=== PATIENT | female | born 1960 | race American Indian/Alaskan Native ===

== ENCOUNTER 2022-07-03 07:58 | Emergency (ER) | payer MEDICARE ==
[2022-07-03 09:40] LABS: BUN/Creatinine Ratio 20; Blood Urea Nitrogen 16 mg/dL (7-17); Calcium 9.8 mg/dL (8.4-10.2); Hemolysis Index 9
[2022-07-03 09:49] LABS: Basophils # (Auto) 0.1 K/mm3 (0.0-0.1); Basophils % (Auto) 0.7 % (0.0-1.8); Eosinophils # (Auto) 0.1 K/mm3 (0.0-0.4); Eosinophils % (Auto) 1.5 % (0.0-4.3); Hematocrit 36.1 % (30.3-42.9); Hemoglobin 11.7 gm/dl (10.1-14.3); Lymphocytes # (Auto) 1.8 K/mm3 (1.2-5.4); Lymphocytes % (Auto) 22.3 % (13.4-35.0); Mean Corpuscular HGB Conc 32 % (30-34); Mean Corpuscular Volume 101 fl (79-97); Monocytes # (Auto) 0.4 K/mm3 (0.0-0.8); Monocytes % (Auto) 4.9 % (0.0-7.3); Platelet Count 382 K/mm3 (140-440); Red Blood Count 3.58 M/mm3 (3.65-5.03); Red Cell Distribution Width 13.7 % (13.2-15.2)
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
[2022-07-03] MEDS: risperiDONE 0.25 MG TAB PO SCH (22:53)
[2022-07-03] MEDS: buPROPion XL 150 MG TAB PO SCH (22:55)
[2022-07-03] MEDS: TOPIRAMATE TAB 200 MG TAB PO SCH (22:55)
--- NOTE | 2022-07-03 23:36 | Emergency Department Report ---
HPI - General Chief Complaint: Medical Clearance PUI?: No - HPI HPI: 61yo F w/HTN, CHF, presents for evaluation of SI. Please note that at the time of onset of this provider's shift time, the pt had been registered and evaluated by psychiatry ~15 hours ago. The pt states she has nowhere to live and reports she has been feeling suicidal. She told me that she will drive off of bridge. She denies any auditory visual hallucinations but does state that "they are trying to get me." She will not clarify to whom she is referring. Patient states she has no pain at this time. She denies any tobacco alcohol or illicit drug usage. Pain 0 out of 10 ED Past Medical Hx - Past Medical History Previous Medical History?: Yes Hx Hypertension: Yes Hx Congestive Heart Failure: Yes - Surgical History Additional Surgical History: HIP REPLACEMENT - Social History Substance Use Type: None ED Review of Systems ROS: Stated complaint: MEDICAL CLEARANCE Other details as noted in HPI Comment: All other systems reviewed and negative Physical Exam - Physical Exam Vital Signs: Vital Signs 07/03/22 08:09 Temperature 98.3 F Pulse Rate 94 H Respiratory 18 Rate Blood Pressure 169/75 O2 Sat by Pulse 98 Oximetry General: Gen: pt is well appearing, no acute distress HEENT: Normocephalic atraumatic pupils equally round and reactive to light extraocular muscles intact sclera anicteric Neck: Full range of motion, no midline spinal tenderness palpation, no JVD, no carotid bruits, no nuchal rigidity CVS: S1-S2 regular rate and rhythm with no gallops rubs or murmurs, chest wall nontender Pulmonary: Clear to auscultation bilaterally, no wheezes rales or rhonchi Abdomen: Soft nondistended nontender no guarding or rebound tenderness, no palpable deformities or step-offs, normal active bowel sounds, no hepatosplenomegaly, no pulsatile masses : Deferred Extremities: No cyanosis no clubbing no edema, intact distal peripheral pulses, Integumentary: Skin normal, no petechia no purpura no abscess no lacerations no evidence of trauma no evidence of infection Neuro: Patient is awake alert and oriented to person place time situation, mentating well, cranial nerves II through XII intact, no focal neurodeficits, sensation grossly tact Psych: Calm cooperative, mood affect normal ED Course Vital Signs 07/03/22 08:09 Temperature 98.3 F Pulse Rate 94 H Respiratory 18 Rate Blood Pressure 169/75 O2 Sat by Pulse 98 Oximetry - Reevaluation(s) Reevaluation #1: 07/04/22 01:49 pt asleep, comfortable appearing, nad; ED Medical Decision Making - Lab Data Result diagrams: 07/03/22 08:54 07/03/22 08:54 - Medical Decision Making 61yo F, seen by psychiatry with documented recommendation for psychiatry acute inpatient hospitalization,. Patient had 1013 placed by previous provider and this has been placed into the patient's chart. Review of serum labs reveal no acute findings. Pt has been medically cleared based off of the resulted serum labs. Urine drug screen and COVID test remain pending at the time of this dictation. Patient will continue to remain as held as a 1013, and will await formal placement by psychiatry for acute inpatient psychiatric hospitalization in the setting of delusional disorder and suicidal ideation Critical Care Time: No Critical care attestation.: If time is entered above; I have spent that time in minutes in the direct care of this critically ill patient, excluding procedure time. ED Disposition Clinical Impression: Delusional disorder, Suicidal ideation Disposition: 30 STILL A PATIENT Is pt being admited?: No Does the pt Need Aspirin: No Condition: Stable Referrals: DAVID OLSEN MD [Primary Care Provider] - 3-5 Days
[2022-07-04 09:21] LABS: Bacteria,Urine 1+ /HPF (Negative); Calcium Oxalate Crystals,Urine 1+; Hyaline Casts,Urine 4 /LPF; Mucus,Urine FEW /HPF
[2022-07-04 09:22] LABS: Amphetamine Screen,Urine Negative; Benzodiazepines Screen,Urine Negative; Cannabinoid Screen,Urine Negative; Cocaine Screen,Urine Negative; Methadone Screen,Urine Negative; Opiate Screen,Urine Negative
[2022-07-04 09:23] LABS: Color,Urine Straw (Yellow)
[2022-07-04] MEDS: buPROPion XL 150 MG TAB PO SCH (10:47)
[2022-07-04] MEDS: risperiDONE 0.25 MG TAB PO SCH ×2 (10:47→22:02)
[2022-07-04] MEDS: ACETAMINOPHEN 325 MG TAB PO PRN (22:02)
[2022-07-04] MEDS ORDERED: ONDANSETRON 4 MG ODT TAB PO ONE (22:12)
--- NOTE | 2022-07-04 22:16 | Event Note ---
nurse requesting meds to help pt sleep and nausea meds labs and chart reviewed Patient noted to have findings suggestive of UTI. Macrobid 100 mg twice daily x10 doses ordered. Vistaril 50 mg nightly ordered for sleep as needed and 1 dose of Zofran 4 mg ODT ordered vitals signs reviewed. Repeat vitals requested with hr 103.
[2022-07-04] MEDS: TOPIRAMATE TAB 200 MG TAB PO SCH (22:49)
[2022-07-04] MEDS: hydrOXYzine PAMOATE 25 MG CAP PO PRN (22:49)
[2022-07-04] MEDS: NITROFURANTOIN MONOHYD/M-CRYST 100 MG CAP PO SCH (22:49)
--- NOTE | 2022-07-05 12:17 | Event Note ---
Date: 07/05/22 vss , no distress, medically cleared , assessed by psych , awaiting placement
--- NOTE | 2022-07-05 12:53 | Progress Note ---
Subjective - Reason for Consult Consult date: 07/04/22 Reason for consult: mental health evaluation - Chief Complaint Chief complaint: delusions Mental Status Exam - Vital signs Last Vital Signs Temp 95.5 F L 07/04/22 20:36 Pulse 103 H 07/04/22 22:24 Resp 16 07/04/22 22:24 BP 147/90 07/04/22 22:24 Pulse Ox 100 07/05/22 09:48 - Exam Narrative exam: 07/04: Patient was seen today. Patient reports fair mood. Patient continues to endorse anxiety regarding her safety outside of the hospital. Patient denies SI HI AVH. Orientation: time, place, person Affect: anxious, agitated Mood: congruent with affect Thought content: delusions Thought Process: Intact Perceptions: none Speech: normal rate and pattern Concentration: focused Motor activity: normal Level of consciousness: alert Memory: Intact Sleep Symptoms: None Interaction: irritable, cooperative Assessment and Plan Assessment: Delusional disorder 1013 Continue meds Medical: Per primary Sitter: Defer to primary Disposition: Recommend acute psychiatric inpatient treatment Will sign follow. Thanks Case staffed with Dr. Edouard. - Patient Problems (1) Delusional disorder Current Visit: Yes Status: Acute
--- NOTE | 2022-07-05 12:58 | Progress Note ---
Subjective - Reason for Consult Consult date: 07/05/22 Reason for consult: mental health evaluation - Chief Complaint Chief complaint: delusions Mental Status Exam - Vital signs Last Vital Signs Temp 95.5 F L 07/04/22 20:36 Pulse 103 H 07/04/22 22:24 Resp 16 07/04/22 22:24 BP 147/90 07/04/22 22:24 Pulse Ox 100 07/05/22 09:48 - Exam Narrative exam: 07/05: Patient was seen today. Patient was alert and oriented x3 and cooperative during interview. Patient reports good mood and reports she slept well and has good appetite. Patient denies SI HI or AVH. Patient continues to endorse belief she was followed to [place] and expresses concern about the "GPS magnetic tracker," on her car. Patient denies being afraid while in hospital. Patient denies feeling paranoid. Patient interested in talking further to case management regarding next steps after discharge to avoid being tracked and having a place to stay while she tries to find her daughter in [place]. Orientation: time, place, person Affect: normal Mood: congruent with affect Thought content: delusions Thought Process: Intact, Goal Oriented Perceptions: none Speech: normal rate and pattern Concentration: focused Motor activity: normal Level of consciousness: alert Memory: Intact Sleep Symptoms: None Interaction: cooperative, pleasant Assessment and Plan Assessment: Delusional disorder 1013 Increase risperidone 1 mg BID Medical: Per primary Sitter: Defer to primary Disposition: Recommend acute psychiatric inpatient treatment. Will follow. Thanks Case staffed with Dr. Edouard. - Patient Problems (1) Delusional disorder Current Visit: Yes Status: Acute
[2022-07-05] MEDS: NITROFURANTOIN MONOHYD/M-CRYST 100 MG CAP PO SCH ×2 (13:35→22:00)
[2022-07-05] MEDS: buPROPion XL 150 MG TAB PO SCH (13:35)
[2022-07-05] MEDS: risperiDONE 0.25 MG TAB PO SCH (13:35)
[2022-07-05] MEDS: ACETAMINOPHEN 325 MG TAB PO PRN (16:23)
[2022-07-05] MEDS: TOPIRAMATE TAB 200 MG TAB PO SCH (22:00)
[2022-07-05] MEDS: hydrOXYzine PAMOATE 25 MG CAP PO PRN (22:00)
[2022-07-05] MEDS: risperiDONE 1 MG TAB PO SCH (22:00)
[2022-07-06] MEDS: NITROFURANTOIN MONOHYD/M-CRYST 100 MG CAP PO SCH ×2 (10:30→21:55)
[2022-07-06] MEDS: ACETAMINOPHEN 325 MG TAB PO PRN ×2 (10:31→20:51)
[2022-07-06] MEDS: buPROPion XL 150 MG TAB PO SCH (10:31)
[2022-07-06] MEDS: risperiDONE 1 MG TAB PO SCH ×2 (10:31→21:55)
--- NOTE | 2022-07-06 15:34 | Emergency Department Report ---
Blank Doc - Documentation Documentation: 61-year-old female being evaluated in the emergency department for delusional disorder. It has been decided that the patient would best be served by being placed in an inpatient psychiatric facility, but there has been difficulty finding placement for her as she has a service dog with her. There have been no acute issues during my shift, and patient is still awaiting placement.
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
[2022-07-06] MEDS ORDERED: ONDANSETRON 4 MG ODT TAB PO ONE (20:41)
[2022-07-06] MEDS: TOPIRAMATE TAB 200 MG TAB PO SCH (21:55)
[2022-07-06] MEDS: hydrOXYzine PAMOATE 25 MG CAP PO PRN (21:56)
[2022-07-07] MEDS: buPROPion XL 150 MG TAB PO SCH (09:49)
[2022-07-07] MEDS: risperiDONE 1 MG TAB PO SCH (09:49)
[2022-07-07] MEDS: NITROFURANTOIN MONOHYD/M-CRYST 100 MG CAP PO SCH (09:49)
[2022-07-07 10:48] VITALS: BP 132/72
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
--- NOTE | 2022-07-07 14:19 | Emergency Department Report ---
Blank Doc - Documentation Documentation: Patient slept well ate well and feels well. Patient has no suicidal or homici waylon ideations. Patient wishes to be discharged
== END 2022-07-07 15:22 | disposition still patient (30) ==
LOC: ED 07:58
DX: R45.851 Suicidal ideations (principal); F22 Delusional disorders; I11.0 Hypertensive heart disease with heart failure; I50.9 Heart failure, unspecified; Z20.822 Contact with and (suspected) exposure to COVID-19
CPT/HCPCS: 36415; 80048; 80307; 81001; 85025; 87076; 87086; 87186; 99284; U0003; 80320; J3490; G0480; Q0162